=== PATIENT | female | born 1950 | race Caucasian/White ===

== ENCOUNTER 2017-12-13 05:17 | Observation (INO) | payer OTHER, BC ==
[2017-12-13] MEDS ORDERED: ceFAZolin 2 GM/DEXTROSE 100 ML IV ONE (05:41)
[2017-12-13] MEDS ORDERED: ACETAMINOPHEN 500 MG TAB PO ONE (05:41)
[2017-12-13] MEDS ORDERED: GABAPENTIN 300 MG CAP PO ONE (05:41)
[2017-12-13] MEDS ORDERED: LR 1,000 ML IV ONE (05:43)
[2017-12-13] MEDS ORDERED: SURGIFLO MATRIX KIT WITH THROMBIN 8 ML TP ONE (06:51)
[2017-12-13] MEDS ORDERED: THROMBIN (BOVINE) 20,000 UNIT VIAL TP ONE (06:51)
[2017-12-13] MEDS ORDERED: CHLORHEXIDINE GLUC HIBICLENS 118 ML BTL TP ONE (06:51)
[2017-12-13] MEDS ORDERED: BACITRACIN 50,000 UNITS/10 ML SYR IRR ONE (06:52)
--- NOTE | 2017-12-13 06:55 | PDANEPAE ---
ANE History of Present Illness ACDF ANE Past Medical History - Cardiovascular History Hx Hypertension: No Hx Arrhythmias: No Hx Chest Pain: No Hx Coronary Artery / Peripheral Vascular Disease: No Hx CHF / Valvular Disease: No Hx Palpitations: No Cardiovascular History Comment: OCCAS IRREG FLUTTER - Pulmonary History Hx COPD: No Hx Asthma/Reactive Airway Disease: No Hx Recent Upper Respiratory Infection: No Hx Oxygen in Use at Home: No Hx Sleep Apnea: No Sleep Apnea Screening Result - Last Documented: Negative Pulmonary History Comment: SEASONAL ALLERGIES - Neurologic History Hx Cerebrovascular Accident: No Hx Seizures: No Hx Dementia: No - Endocrine History Hx Diabetes: Yes Endocrine History Comment: HYPOTHYROID - Renal History Hx Renal Disorders: No - Liver History Hx Hepatic Disorders: No - Neurological & Psychiatric Hx Hx Neurological and Psychiatric Disorders: No Neurological / Psychiatric History Comment: CYMBALTA - DEPRESSION & BACK PAIN. LE neuropathy - Cancer History Hx Cancer: No - Congenital Disorder History Hx Congenital Disorders: No - GI History Hx Gastrointestinal Disorders: No - Other Health History Other Health History: 2 LT HIP DISLOCATIONS POST SURG 01/06/16 REVISION. HX - ANEMIA - TAKES B-12 - Chronic Pain History Chronic Pain: Yes (HIP PAIN & BACK PAIN) - Surgical History Prior Surgeries: R ALOK. L HIP REVISION X2. LT TOTAL HIP 01/2016. ORIF LT 2ND TOE WITH POST HARDWARE REMVL ANE Review of Systems Review of systems is: negative Review of Systems: - Exercise capacity METS (RN): 4 METS ANE Patient History - Allergies Allergies/Adverse Reactions: shellfish derived Allergy (Verified 01/22/16 22:08) - Home Medications Home medications: home medication list seen and reviewed Home Medications: Ascorbic Acid [Vitamin C 500 mg (*)] 500 mg PO DAILY 11/28/15 [Last Taken ] Herbals/Supplements -Info Only 1 each PO DAILY 11/28/15 [Last Taken 12/03/17] Diclofenac Sodium [Voltaren 75 MG (*)] 75 mg PO BID 01/22/16 [Last Taken ] Aspirin [Aspirin 81mg (*)] 81 mg PO DAILY 11/08/17 [Last Taken 12/03/17] Cholecalciferol Vit D3 [Vitamin D3 (*)] 1,000 units PO DAILY 11/08/17 [Last Taken 12/03/17] Cyanocobalamin [Vitamin B12 (*)] 1,000 mcg PO DAILY 11/08/17 [Last Taken ] DULoxetine [Cymbalta 30 MG (*)] 30 mg PO BID 11/08/17 [Last Taken 12/03/17] Levothyroxine [Synthroid 125 mcg (*)] 125 mcg PO DAILY06 11/08/17 [Last Taken ] Loratadine [Claritin 10 mg] 10 mg PO DAILY 11/08/17 [Last Taken 12/12/17] Metoprolol Succinate Xr [Toprol Xl 25 mg (*)] 25 mg PO DAILY 11/08/17 [Last Taken 12/12/17] Multivitamins [Multivitamin (*)] 2 each PO DAILY 11/08/17 [Last Taken 12/12/17] Meloxicam 3 mg PO DAILY 12/13/17 [Last Taken 12/03/17] - NPO status NPO Since - Liquids (Date): 12/13/17 NPO Since - Liquids (Time): 04:15 NPO Since - Solids (Date): 12/12/17 NPO Since - Solids (Time): 19:30 - Anes Hx Anes Hx: no prior problems - Smoking Hx Smoking Status: Former smoker - Family Anes Hx Family Anes Hx: none Family Hx Anesthesia Complications: NEG ANE Labs/Vital Signs - Vital Signs Vital Signs: reviewed preoperatively; see RN documention for details Blood Pressure: 143/84 Heart Rate: 64 Respiratory Rate: 16 O2 Sat (%): 98 Height: 166.37 cm Weight: 52.163 kg ANE Physical Exam - Airway Neck exam: FROM Mallampati Score: Class 1 Mouth exam: normal dental/mouth exam - Pulmonary Pulmonary: no respiratory distress - Cardiovascular Cardiovascular: regular rate and rhythym - ASA Status ASA Status: II ANE Anesthesia Plan Anesthesia Plan: general endotracheal anesthesia
--- NOTE | 2017-12-13 07:00 | PDHPUP ---
History & Physical Update H&P update statement: This history and physical update is based on an assessment of the patient which was completed after admission or registration (within 24 hours), but prior to the surgery/procedure. H&P update: H&P reviewed & patient examined, no change in patient's condition since H&P completed (Consents signed and site marked. All questions answered.)
[2017-12-13] MEDS ORDERED: MIDAZOLAM 2 MG/2 ML VIAL IVP ONE (07:02)
[2017-12-13] MEDS ORDERED: MIDAZOLAM 2 MG/2 ML VIAL ONE (07:04)
[2017-12-13] MEDS ORDERED: DEXAMETHASONE 4 MG/ML VIAL ONE (07:13)
[2017-12-13] MEDS ORDERED: LIDOCAINE 2% 100 MG/5 ML SYR ONE (07:13)
[2017-12-13] MEDS ORDERED: ONDANSETRON 4 MG/2 ML VIAL ONE (07:13)
[2017-12-13] MEDS ORDERED: ROCURONIUM 50 MG/5 ML VIAL ONE (07:13)
[2017-12-13] MEDS ORDERED: fentaNYL 100 MCG/2 ML INJ ONE ×2 (07:13→09:38)
[2017-12-13] MEDS ORDERED: REMIFENTANIL HCL 1 MG VIAL ONE (07:14)
[2017-12-13] MEDS ORDERED: PROPOFOL 200 MG/20 ML VIAL ONE (07:14)
[2017-12-13] MEDS ORDERED: PROPOFOL/EMULSION 500 MG/50 ML BOTTLE IV ONE (07:14)
--- NOTE | 2017-12-13 08:14 | POSTANESTH ---
Post Anesthetic Evaluation Cardiovascular Status: Similar to Pre-Op Cond Respiratory Status: Similar to Pre-op Cond. Level of Consciousness/Mental Status: Can Participate in Eval, Mildly Sleepy, Arousable Pain Control: Inadeq, Add Tx Required Nausea/Vomiting Control: Adequate, Prn Tx Ordered Complications Possibly Related to Anesthesia: None Noted
[2017-12-13] MEDS ORDERED: DEXAMETHASONE 4 MG/ML VIAL IVP PRN (08:15)
[2017-12-13] MEDS ORDERED: LABETALOL HCL 5 MG/ML 20 ML MDV IVP PRN (08:15)
[2017-12-13] MEDS ORDERED: HYDROCODONE/APAP 5/325 TAB PO PRN (08:15)
[2017-12-13] MEDS ORDERED: NALOXONE HCL 0.4 MG/ML INJ IVP PRN (08:15)
[2017-12-13] MEDS ORDERED: ALBUTEROL 3 ML DEYVIAL IH PRN (08:15)
[2017-12-13] MEDS ORDERED: oxyCODONE IR 5 MG TAB PO PRN (08:15)
[2017-12-13] MEDS ORDERED: ACETAMINOPHEN 500 MG TAB PO PRN (08:15)
[2017-12-13] MEDS ORDERED: ONDANSETRON 4 MG/2 ML VIAL IVP PRN ×2 (08:15→09:39)
[2017-12-13] MEDS ORDERED: MEPERIDINE 25 MG/0.5 ML AMP IVP PRN (08:15)
[2017-12-13] MEDS ORDERED: PROMETHAZINE HCL 25 MG/ML INJ IVP PRN (08:15)
[2017-12-13] MEDS ORDERED: HYDROmorphONE/DILAUDID 1 MG/ML INJ ONE (09:38)
[2017-12-13] MEDS ORDERED: ONDANSETRON DISINTEGRATING 4 MG TAB PO PRN (09:39)
[2017-12-13] MEDS ORDERED: MAGNESIUM HYDROXIDE 30 ML UDCUP PO PRN (09:39)
[2017-12-13] MEDS ORDERED: LACTULOSE 20 GM/30 ML UDCUP PO PRN (09:39)
[2017-12-13] MEDS ORDERED: diphenhydrAMINE 25 MG CAP PO PRN (09:39)
[2017-12-13] MEDS ORDERED: BISACODYL 10 MG SUPP PR PRN (09:39)
[2017-12-13] MEDS ORDERED: POLYETHYLENE GLYCOL 3350 17 GM PKT PO PRN (09:39)
[2017-12-13] MEDS: fentaNYL 100 MCG/2 ML INJ IVP PRN ×2 (09:40→10:00)
[2017-12-13] MEDS ORDERED: NS 1,000 ML IV SCH (09:45)
[2017-12-13] MEDS: HYDROmorphONE/DILAUDID 1 MG/ML INJ IVP PRN ×3 (09:50→10:46)
--- NOTE | 2017-12-13 09:52 | POSTOPPROG ---
Post Op Note Date of Operation: 12/13/17 Surgeon: Esau Monique Contract Administrative Assistant: ROWAN Velazquez Anesthesia: GET(General Endotracheal) Pre-op Diagnosis: cervical myelopathy Post-op Diagnosis: cervical myelopathy Indication: cervical myelopathy Procedure: ACDF C4-6 Inf/Abcess present in the surg proc area at time of surgery?: No EBL: Minimal PA Addendum - Addendum .: S: Posterior neck pain O: NAD A&OX3 MAEX4 5/5 = BUE and BLE. Incision C/D/I A/P 67F s/p ACDF C4-6 -Post op xrays pending -Advance diet as tolerated -Optimize pain management -Hard collar at all times other than shower -PDVT prophx: TEDs, SCDs, Lovenox okay POD3 -Please notify NS with any change in neuro/motor exam
[2017-12-13] MEDS ORDERED: DIAZEPAM 5 MG/ML 1 ML SYR ONE (10:12)
[2017-12-13] MEDS ORDERED: DIAZEPAM 5 MG/ML 1 ML SYR IVP ONE (10:15)
--- NOTE | 2017-12-13 10:43 | GOP ---
DATE OF OPERATION: 12/13/2017 SURGEON: Esau Monique MD EMPLOYMENT OFFICE CLERK: Jenelle Velazquez PA-C. ANESTHESIA: General. PREOPERATIVE DIAGNOSIS: 1. C4 through C6 cervical stenosis and spondylosis with myelopathy. 2. Treatment refractory to nonoperative intervention. POSTOPERATIVE DIAGNOSIS: 1. C4 through C6 cervical stenosis and spondylosis with myelopathy. 2. Treatment refractory to nonoperative intervention. PROCEDURE PERFORMED: 1. Anterior arthrodesis with approach to C4, C5, and C6. 2. C4-C5 diskectomy with bilateral foraminotomies, osteophytectomies, and interbody fusion using a 7 x 14 x 11 mm titanium-coated PEEK cage filled with morselized autograft and allograft. 3. C5-C6 diskectomy with bilateral foraminotomies, osteophytectomies, and interbody fusion using a 7 x 14 x 11 mm titanium-coated PEEK cage filled with morselized autograft and allograft. 4. Anterior cervical fusion C4, C5, and C6, with a 37.5 mm [employer] [place] translational plate. 5. Use of intraoperative fluoroscopy, less than 1 hour physician time. 6. Use of neuromonitoring. 7. Use of operating microscope. FINDINGS: per imaging SPECIMENS: None. ESTIMATED BLOOD LOSS: 5 mL. INDICATIONS: The patient is a 67-year-old woman who presented to our office with lower extremity symptoms and has bad stenosis in her lumbar spine. She also had complaints of myelopathy, and imaging demonstrates cervical stenosis with spondylosis, worse from the C4 through C6 levels. After discussion of the risks, benefits, and treatment alternatives after failing nonoperative intervention, we decided to proceed forth with surgery as described above. DESCRIPTION OF PROCEDURE: The patient was brought to the operating theater and underwent general endotracheal anesthesia without complications. She had Venodynes, ART hose, and the appropriate lines placed by Anesthesia. She was maintained supine on the operating room table with her head in slight extension. All bony prominences were inspected and padded. Using lateral fluoroscopy and a spinal needle, we picked our entry point at the C4 through C6 levels. This was marked as a transverse incision on the right side of her neck. This area was then prepped and draped in the usual sterile surgical fashion. A time-out was completed per protocol, and the patient received antibiotics within 1 hour of incision. The incision was taken down with the scalpel blade, and then using monopolar, the incision was taken down through the subcutaneous tissues to the level of the platysma. The platysma was over-mined in the cranial and caudal directions. A Weitlaner was placed to maintain our exposure. We opened the fibers of the platysma cranially and caudally. Using blunt and sharp dissection , we traveled in a plane medial to the carotid sheath and lateral to the esophagus and trachea to reach the prevertebral fascia. She had large anterior osteophytes on the vertebral bodies of C4, C5, and C6, which we took down the Leksell rongeur. We elevated the longus colli muscle from the anterior vertebral bodies of C4, C5, and C6. Deep retractors were placed to maintain our exposure, and we confirmed our level using lateral fluoroscopy. The microscope was brought into the field to assist with microscopic dissection and to maintain illumination and magnification. At this point, we placed Slaughters pins into the vertebral bodies of C4 and C5 and placed C4-C5 into mild distraction. We completed a C4-C5 diskectomy with bilateral foraminotomies and osteophytectomies. We prepared the cartilaginous endplates and measured the interbody space. We then placed a 7 x 14 x 11 mm titanium-coated PEEK cage filled with morselized autograft and allograft into the C4-C5 disk space. We removed the Slaughters pin from C4 and placed it into C6, and placed C5-C6 into mild distraction. We completed a C5-C6 diskectomy with bilateral foraminotomies and osteophytectomies. We prepared the cartilaginous endplates and measured the interbody space. We then placed a 7 x 14 x 11 mm titanium- coated PEEK cage filled with morselized autograft and allograft into the C5-6 disk space. We removed the Slaughters pins and drilled down the anterior osteophytes on C4, C5, and C6. We then secured a 37.5 mm [employer] [place] translational plate onto the vertebral bodies of C4, C5, and C6. The wound was irrigated copiously with bacitracin irrigation. We closed the wound in multiple layers using Vicryl sutures for the deep layers and Dermabond for the skin. The patient's wounds were dressed sterilely. She was awakened, extubated, and taken to the recovery room in stable condition. There were no complications and no noted changes on neuromonitoring throughout the procedure. COMPLICATIONS: None. /[id number]/MODL MTDD
[2017-12-13] MEDS: oxyCODONE IR 5 MG TAB PO PRN ×3 (11:54→23:37)
[2017-12-13] MEDS: ACETAMINOPHEN 500 MG TAB PO SCH ×2 (13:47→21:20)
[2017-12-13] MEDS: ceFAZolin 2 GM/DEXTROSE 100 ML IV SCH ×2 (15:02→23:37)
[2017-12-13] MEDS: CYCLOBENZAPRINE 10 MG TAB PO SCH ×2 (15:12→21:20)
[2017-12-13] MEDS ORDERED: MELATONIN 3 MG TAB PO SCH (21:00)
[2017-12-13] MEDS: SENNOSIDES/DOCUSATE SODIUM TAB PO SCH (21:20)
[2017-12-13] MEDS: FAMOTIDINE 20 MG TAB PO SCH (21:20)
[2017-12-13] MEDS: DULoxetine 30 MG CAP PO SCH (21:20)
[2017-12-14] MEDS: oxyCODONE IR 5 MG TAB PO PRN ×3 (05:08→13:52)
[2017-12-14 05:21] LABS: PLATELET COUNT 256 10^3/uL (150-400)
[2017-12-14] MEDS ORDERED: LEVOTHYROXINE 125 MCG TAB PO SCH (06:00)
[2017-12-14] MEDS: ACETAMINOPHEN 500 MG TAB PO SCH ×2 (06:10→13:52)
[2017-12-14 07:52] VITALS: BP 145/85
--- NOTE | 2017-12-14 07:59 | NEUSURGPN ---
Date of Surgery: 12/13/17 Post Op Day: 1 Assessment/Plan: Assessment: 67F s/p ACDF C4-6 POD#1 Plan: -Post op xrays show stable hardware placement without evidence of complication -Ok to discharge home today -Hard collar at all times other than shower -DVT prophx: TEDs, SCDs, Lovenox okay POD3 -Discusses patient with Dr Monique who saw the patient today as well. Subjective: Doing well, no complaints Objective: AxO x3 PERRLA 5/5 BUE, BLE Dressing CDI Collar in place Neuro Check Frequency: per routine Urinary Catheter in Place: No - Physician Discussed Patient with DrHoa: Eneida Patient Seen by : Eneida Neurosurgery Physical Exam - Vitals, I&O, Labs I and O 12/13/17 12/14/17 12/15/17 05:59 05:59 05:59 Intake Total 3160 Output Total 1875 1000 Balance 1285 -1000 Weight 52.16 kg Intake: Oral (ml) 2250 IV Intake (ml) 800 IV Infused (ml) 110 ceFAZolin 2 GM/DEXTROSE 110 100 ml @ 200 mls/hr IV Q8H [facility] Rx#:[id number] Output: Urine (ml) 1850 1000 Toilet 1850 1000 Estimated Blood Loss (ml) 25 Other: Intake Quantity Yes Sufficient Number of Voids Toilet 1 1 Vital Signs Temp Pulse Resp BP Pulse Ox 36.8 C 58 L 16 145/85 H 98 12/14/17 07:39 12/14/17 07:39 12/14/17 07:39 12/14/17 07:39 12/14/17 07:39 Laboratory Results 12/14/17 04:53 12/14/17 04:53 ICD10 Worksheet Patient Problems: Problems Problem Status Onset Anterior dislocation of left hip Acute Primary osteoarthritis of left hip Acute
[2017-12-14] MEDS ORDERED: CHOLECALCIFEROL VIT D3 1,000 UNITS TAB PO SCH (09:00)
[2017-12-14] MEDS ORDERED: MULTIVITAMINS 1 EACH TAB PO SCH (09:00)
[2017-12-14] MEDS ORDERED: METOPROLOL SUCCINATE XR 25 MG TAB PO SCH (09:00)
[2017-12-14] MEDS ORDERED: CETIRIZINE 10 MG TAB PO SCH (09:00)
[2017-12-14] MEDS ORDERED: CYANO/VITAMIN B12 1000 MCG TAB PO SCH (09:00)
[2017-12-14] MEDS ORDERED: ASCORBIC ACID 500 MG TAB PO SCH (09:00)
[2017-12-14] MEDS: FAMOTIDINE 20 MG TAB PO SCH (10:28)
[2017-12-14] MEDS: SENNOSIDES/DOCUSATE SODIUM TAB PO SCH (10:29)
[2017-12-14] MEDS: DULoxetine 30 MG CAP PO SCH (10:31)
[2017-12-14] MEDS: CYCLOBENZAPRINE 10 MG TAB PO SCH ×2 (10:32→14:34)
[2017-12-14] MEDS ORDERED: PNEUMOC 13-VAL CONJ-DIP CRM/PF 0.5 ML SYR IM ONE (12:13)
[2017-12-14] MEDS ORDERED: PNEUMOCOCCAL 0.5ML VACCINE VIAL IM ONE (15:00)
--- NOTE | 2017-12-14 18:24 | ASMTLACE ---
ROBERTE Length of stay for Answers: 2 days current admission Acuity / Level of Answers: No Care: Did the patient have an inpatient admission? Comorbidities - select Answers: Diabetes (uncontrolled or all that apply controlled) Opioid dependence / Chronic pain # of Emergency department Answers: 0 visits in the last 6 months Social determinants Answers: Mental health diagnosis (anxiety, depression, pers onality disorders, etc.) Score: 10 Date Signed: 12/14/2017 04:02 PM Electronically Signed By:EDGARDO Yoo
--- NOTE | 2017-12-14 19:43 | ASMTCMCOM ---
CM Note CM Note Notes: Pt medically stable for d/c with spouse and dghtr support. OT/PT/EGG SMELLER rec home. No CM d/c needs identified. Date Signed: 12/14/2017 04:04 PM Electronically Signed By:EDGARDO Yoo
[2017-12-16] MEDS ORDERED: ENOXAPARIN 40 MG/0.4 ML SYR SC SCH (09:00)
== END 2017-12-14 15:02 | disposition still patient (30) ==
LOC: F3N 05:17 → INTOOBSV 05:17 → F3N 11:20
PROVIDERS: ADMIT Neurological Surgery; ATTEND Neurological Surgery
PROC: 4A1004G Monitoring of Central Nervous Electrical Activity, Intraoperative, Open Approach (ICD-10-PCS; principal; 2017-12-13 07:15)
PROC: 0RB10ZZ Excision of Cervical Vertebral Joint, Open Approach (ICD-10-PCS; principal; 2017-12-13 07:15)
PROC: 0RG20A0 Fusion of 2 or more Cervical Vertebral Joints with Interbody Fusion Device, Anterior Approach, Anterior Column, Open Approach (ICD-10-PCS; principal; 2017-12-13 07:15)
DX: M50.021 Cervical disc disorder at C4-C5 level with myelopathy (principal); M50.022 Cervical disc disorder at C5-C6 level with myelopathy; M43.12 Spondylolisthesis, cervical region; Z23 Encounter for immunization; E03.9 Hypothyroidism, unspecified
CPT/HCPCS: 22551; 22552; 72040; 76001; 90686; 92610; 97116; 97161; 97166; 97535; C1713; G0008; G0009; G8978; G8979; G8987; G8988; G8989; G8996; G8997; J0690; J1100; J1170; J2001; J2250; J2405; J2704; J3010; J3360

== ENCOUNTER 2018-01-31 07:15 | Inpatient (IN) | payer OTHER, BC ==
[2018-01-31] MEDS ORDERED: ceFAZolin 2 GM/DEXTROSE 100 ML IV ONE (11:40)
[2018-01-31] MEDS ORDERED: GABAPENTIN 300 MG CAP PO ONE (11:40)
[2018-01-31] MEDS ORDERED: ACETAMINOPHEN 500 MG TAB PO ONE (11:40)
[2018-01-31] MEDS ORDERED: morphINE SR 15 MG TAB PO ONE (11:40)
[2018-01-31] MEDS ORDERED: morphINE PF 0.2 MG in SYRINGE INTRATHECAL 1 SYR IT ONE (11:40)
[2018-01-31] MEDS ORDERED: LR 1,000 ML IV ONE (11:41)
[2018-01-31] MEDS ORDERED: PROPOFOL/EMULSION 500 MG/50 ML BOTTLE IV ONE ×2 (11:44→15:11)
[2018-01-31] MEDS ORDERED: fentaNYL 100 MCG/2 ML INJ ONE (11:44)
[2018-01-31] MEDS ORDERED: REMIFENTANIL HCL 1 MG VIAL ONE ×2 (11:46→16:21)
--- NOTE | 2018-01-31 11:56 | PDANEPAE ---
ANE History of Present Illness TLIF ANE Past Medical History - Cardiovascular History Hx Hypertension: No Hx Arrhythmias: No Hx Chest Pain: No Hx Coronary Artery / Peripheral Vascular Disease: No Hx CHF / Valvular Disease: No Hx Palpitations: No Cardiovascular History Comment: OCCAS IRREG FLUTTER - Pulmonary History Hx COPD: No Hx Asthma/Reactive Airway Disease: No Hx Recent Upper Respiratory Infection: No Hx Oxygen in Use at Home: No Hx Sleep Apnea: No Sleep Apnea Screening Result - Last Documented: Negative Pulmonary History Comment: SEASONAL ALLERGIES - Neurologic History Hx Cerebrovascular Accident: No Hx Seizures: No Hx Dementia: No Neurologic History Comment: radiculopathic pain, right leg > left - Endocrine History Hx Diabetes: Yes Hypothyroid: No Hyperthyroid: No Obesity: no Endocrine History Comment: HYPOTHYROID - Renal History Hx Renal Disorders: No - Liver History Hx Hepatic Disorders: No - Neurological & Psychiatric Hx Hx Neurological and Psychiatric Disorders: No Neurological / Psychiatric History Comment: CYMBALTA - DEPRESSION & BACK PAIN. LE neuropathy - Cancer History Hx Cancer: No - Congenital Disorder History Hx Congenital Disorders: Yes Congenital History Comment: scoliosis - GI History Hx Gastrointestinal Disorders: No - Other Health History Other Health History: 2 LT HIP DISLOCATIONS POST SURG 01/06/16 REVISION. HX - ANEMIA - TAKES B-12. Wears glasses - Chronic Pain History Chronic Pain: Yes (Lumbar, right leg) - Surgical History Prior Surgeries: ACDF C4/5-5/6, 12/13/17. R ALOK. L HIP REVISION X2. LT TOTAL HIP 01/2016. ORIF LT 2ND TOE WITH POST HARDWARE REMVL ANE Review of Systems Review of systems is: negative Review of Systems: - Exercise capacity METS (RN): 4 METS ANE Patient History - Allergies Allergies/Adverse Reactions: shellfish derived Allergy (Verified 01/09/18 11:09) - Home Medications Home medications: home medication list seen and reviewed Home Medications: Ascorbic Acid [Vitamin C 500 mg (*)] 500 mg PO DAILY 11/28/15 [Last Taken ] Herbals/Supplements -Info Only 1 each PO DAILY 11/28/15 [Last Taken 12/03/17] Cholecalciferol Vit D3 [Vitamin D3 (*)] 1,000 units PO DAILY 11/08/17 [Last Taken 12/03/17] DULoxetine [Cymbalta 30 MG (*)] 30 mg PO BID 11/08/17 [Last Taken 12/03/17] Levothyroxine [Synthroid 125 mcg (*)] 125 mcg PO DAILY06 11/08/17 [Last Taken ] Loratadine [Claritin 10 mg] 10 mg PO DAILY 11/08/17 [Last Taken 12/12/17] Metoprolol Succinate Xr [Toprol Xl 25 mg (*)] 25 mg PO DAILY 11/08/17 [Last Taken 12/12/17] Cyanocobalamin [Vitamin B12 1000MCG/ML (*)] 1,000 mcg IM Q30D 01/02/18 [Last Taken Unknown] Cyclobenzaprine [Flexeril 10 MG (*)] 10 mg PO TID PRN 01/02/18 [Last Taken Unknown] oxyCODONE IR [Oxycodone Ir (*)] 5 - 10 mg PO Q4-6PRN PRN 01/02/18 [Last Taken Unknown] traMADol [Ultram 50 mg (*)] 50 mg PO TID PRN 01/09/18 [Last Taken Unknown] - Anes Hx Anes Hx: no prior problems - Smoking Hx Smoking Status: Former smoker - Family Anes Hx Family Hx Anesthesia Complications: none ANE Labs/Vital Signs - Vital Signs Height: 166.97 cm Weight: 52.163 kg ANE Physical Exam - Airway Neck exam: decreased ROM, spinal fusion Mallampati Score: Class 1 Mouth exam: normal dental/mouth exam - Pulmonary Pulmonary: no respiratory distress - Cardiovascular Cardiovascular: regular rate and rhythym - ASA Status ASA Status: II ANE Anesthesia Plan Anesthesia Plan: general endotracheal anesthesia Lines/Monitors: arterial line Specialized Airway: video laryngoscope
[2018-01-31] MEDS ORDERED: MIDAZOLAM 2 MG/2 ML VIAL IVP ONE (12:02)
[2018-01-31] MEDS ORDERED: MIDAZOLAM 2 MG/2 ML VIAL ONE (12:02)
[2018-01-31] MEDS ORDERED: diphenhydrAMINE 25 MG CAP PO PRN (12:29)
[2018-01-31] MEDS ORDERED: MAGNESIUM HYDROXIDE 30 ML UDCUP PO PRN (12:29)
[2018-01-31] MEDS ORDERED: THROMBIN (BOVINE) 20,000 UNIT VIAL TP ONE ×2 (12:29→13:11)
[2018-01-31] MEDS ORDERED: CHLORHEXIDINE GLUC HIBICLENS 118 ML BTL TP ONE (12:29)
[2018-01-31] MEDS ORDERED: ONDANSETRON 4 MG/2 ML VIAL IVP PRN ×2 (12:29→16:58)
[2018-01-31] MEDS ORDERED: POLYETHYLENE GLYCOL 3350 17 GM PKT PO PRN (12:29)
[2018-01-31] MEDS ORDERED: ONDANSETRON DISINTEGRATING 4 MG TAB PO PRN (12:29)
[2018-01-31] MEDS ORDERED: LACTULOSE 20 GM/30 ML UDCUP PO PRN (12:29)
[2018-01-31] MEDS ORDERED: BISACODYL 10 MG SUPP PR PRN (12:29)
[2018-01-31] MEDS ORDERED: CYANO/VITAMIN B12 1000 MCG/ML VIAL IM SCH (12:30)
[2018-01-31] MEDS ORDERED: BUPIVACAINE 0.25% 30 ML SDV ONE (12:30)
[2018-01-31] MEDS ORDERED: BACITRACIN 50,000 UNITS/10 ML SYR IRR ONE (12:30)
[2018-01-31] MEDS ORDERED: NS 1,000 ML IV SCH (12:30)
[2018-01-31] MEDS ORDERED: EPINEPHrine 1 MG/ML INJ ONE (12:30)
[2018-01-31] MEDS ORDERED: CITRATE DEXTROSE SOLN 500 ML BAG ONE (12:49)
[2018-01-31] MEDS ORDERED: DEXAMETHASONE 4 MG/ML VIAL ONE (12:55)
[2018-01-31] MEDS ORDERED: ONDANSETRON 4 MG/2 ML VIAL ONE (12:55)
[2018-01-31] MEDS ORDERED: LIDOCAINE 2% 5 ML SDV ONE (12:56)
[2018-01-31] MEDS ORDERED: ROCURONIUM 50 MG/5 ML VIAL ONE (12:56)
[2018-01-31] MEDS ORDERED: PHENYLEPHRINE HCL 100 MCG/ML SYR ONE ×2 (13:01→16:21)
--- NOTE | 2018-01-31 14:11 | POSTANESTH ---
Post Anesthetic Evaluation Cardiovascular Status: Other, See Comment Respiratory Status: Normal, Stable Level of Consciousness/Mental Status: Other, See Comment Pain Control: Adequate, Prn Tx Ordered Nausea/Vomiting Control: Adequate, Prn Tx Ordered Complications Possibly Related to Anesthesia: None Noted (Pt had HR fluctuating between 80s-120s in NSR along with confusion/emergence delirium which resolved spontaneously after about an hour in PACU. She required metoprolol 5mg IV as well as diazepam 2.5mg x2. EKG WNL. No neuro deficits noted.)
[2018-01-31] MEDS ORDERED: HYDROmorphONE/DILAUDID 2 MG/ML INJ ONE (15:14)
[2018-01-31] MEDS ORDERED: PHENYLEPHRINE 10 MG/ML SDV ONE (16:13)
--- NOTE | 2018-01-31 16:13 | PDMN ---
Medical Necessity Medical necessity: MCG S820 Lumbar Fusion and S830 Lumbar Laminectomy: 68 yo sp CPT 42131 S820 [place] [address] LL, L2-5 laminectomy , L2/3, 3/4 and 4/5 TLIF, PSF , L2-5 Posterior, MC IP only
[2018-01-31] MEDS ORDERED: HYDROCODONE/APAP 5/325 TAB PO PRN (16:58)
[2018-01-31] MEDS ORDERED: PHENYLEPHRINE HCL 100 MCG/ML SYR IVP PRN (16:58)
[2018-01-31] MEDS ORDERED: HYDROmorphONE/DILAUDID 2 MG/ML INJ IVP PRN (16:58)
[2018-01-31] MEDS ORDERED: METOCLOPRAMIDE 10 MG/2 ML VIAL IVP PRN (16:58)
[2018-01-31] MEDS ORDERED: ACETAMINOPHEN 500 MG TAB PO PRN (16:58)
[2018-01-31] MEDS ORDERED: LR 500 ML IV PRN (16:58)
[2018-01-31] MEDS ORDERED: LABETALOL HCL 5 MG/ML 20 ML MDV IVP PRN (16:58)
[2018-01-31] MEDS ORDERED: ALBUTEROL 3 ML DEYVIAL IH PRN (16:58)
[2018-01-31] MEDS ORDERED: PROMETHAZINE HCL 25 MG/ML INJ IVP PRN (16:58)
[2018-01-31] MEDS ORDERED: oxyCODONE IR 5 MG TAB PO PRN (16:58)
[2018-01-31] MEDS ORDERED: fentaNYL 100 MCG/2 ML INJ IVP PRN (16:58)
[2018-01-31] MEDS ORDERED: NALOXONE HCL 0.4 MG/ML INJ IVP PRN (16:58)
--- NOTE | 2018-01-31 17:39 | POSTOPPROG ---
Post Op Note Date of Operation: 01/31/18 Surgeon: Esau Monique Metal Sprayer Machined Parts: YONY Velazquez PAC Anesthesia: GET(General Endotracheal) Pre-op Diagnosis: Lumbar stenosis Post-op Diagnosis: Lumbar stenosis Indication: Lumbar stenosis Procedure: L2-5 laminectomy, TLIF, PSF Inf/Abcess present in the surg proc area at time of surgery?: No EBL: 250cc Drains: Mike ESPINO Addendum - Addendum .: S: Resting comfortably O: NAD A&Ox3 MAEx4 5/5 and equal in BUE and BLE A/P: 68y/o female s/p L2-L5 laminectomy, TLIF and PSF -Advance diet as tolerated -Optimize pain management -Post op xrays pending -JPx1 -DVT porphx: TEDs, SCDs, Lovenox okay POD1 -PT/OT -Please notify NS with any change in neuro/motor exam
[2018-01-31] MEDS ORDERED: METOPROLOL TARTRATE 5 MG/5 ML INJ ONE (18:06)
[2018-01-31] MEDS ORDERED: DIAZEPAM 5 MG/ML 1 ML SYR ONE (18:16)
[2018-01-31] MEDS: DIAZEPAM 5 MG/ML 1 ML SYR IVP PRN ×2 (18:18→18:44)
[2018-01-31] MEDS: ACETAMINOPHEN 500 MG TAB PO SCH ×2 (20:10→21:01)
[2018-01-31] MEDS ORDERED: NS BOLUS 500 ML (Wide open) IV ONE ×2 (20:30→23:30)
[2018-01-31] MEDS ORDERED: ALBUMIN 5% 250 ML IV ONE (20:30)
[2018-01-31] MEDS: METOPROLOL TARTRATE 5 MG/5 ML INJ IVP SCH ×2 (20:50→21:59)
[2018-01-31] MEDS: SENNOSIDES/DOCUSATE SODIUM TAB PO SCH (21:01)
[2018-01-31] MEDS: DULoxetine 30 MG CAP PO SCH (21:01)
[2018-01-31] MEDS: FAMOTIDINE 20 MG TAB PO SCH (21:01)
[2018-01-31] MEDS: ceFAZolin 2 GM/DEXTROSE 100 ML IV SCH (21:21)
[2018-01-31] MEDS: oxyCODONE IR 5 MG TAB PO PRN (21:52)
[2018-02-01] MEDS ORDERED: NS BOLUS 1000 ML (Wide open) IV ONE (02:30)
[2018-02-01] MEDS ORDERED: ALBUMIN 5% IV ONE (02:30)
[2018-02-01] MEDS: ceFAZolin 2 GM/DEXTROSE 100 ML IV SCH (03:55)
--- NOTE | 2018-02-01 05:34 | GOP ---
DATE OF OPERATION: 01/31/2018 SURGEON: Esau Monique MD ASSIST: KENZIE Gonzales ANESTHESIA: General. PREOPERATIVE DIAGNOSIS: 1. Lumbar spondylosis with stenosis L2 through L5. 2. Scoliosis. 3. Treatment refractory to nonoperative intervention. POSTOPERATIVE DIAGNOSIS: 1. Lumbar spondylosis with stenosis L2 through L5. 2. Scoliosis. 3. Treatment refractory to nonoperative intervention. PROCEDURE PERFORMED: 1. Posterior arthrodesis with approach to L2, L3, L4, and L5. 2. Posterolateral fusion with bilateral pedicle screw placement at L2, L3, L4, and L5 from the [employer] Solera 5.5/6.0 system. 3. Decompressive laminectomy with bilateral medial facetectomies, L2-L3, L3-L4 , and L4-L5. 4. Right-sided L2-L3, L3-L4, and L4-L5 aggressive facetectomies. 5. Right-sided L2-3 transforaminal lumbar interbody fusion with a 6 x 26 mm titanium coated PEEK cage with morselized autograft and allograft. 6. Right-sided L3-4 transforaminal lumbar interbody fusion with a 6 x 26 mm titanium coated PEEK cage filled with morselized autograft and allograft. 7. Right-sided L4-5 transforaminal lumbar interbody fusion with a 6 x 26 mm titanium coated PEEK cage filled with morselized autograft and allograft. 8. Posterolateral fusion on the left between L2 and L5 with morselized autograft and allograft. 9. Use of intraoperative 3D navigation. 10. Use of intraoperative fluoroscopy, less than 1 hour physician time. 11. Use of neuromonitoring. 12. Use of operating microscope. 13. Injection of preservative-free intrathecal narcotics. FINDINGS: per imaging SPECIMENS: None. ESTIMATED BLOOD LOSS: 250 mL, of which 130 was given back by Cell [employer]. INDICATIONS: The patient is a very pleasant woman who presented to our office with both lumbar and cervical spine issues. She had evidence of scoliosis with severe spinal stenosis L2 through L5. After undergoing surgery for her cervical spine, she presents now for her lumbar spine surgery. DESCRIPTION OF PROCEDURE: The patient was brought to the operating theater and underwent general endotracheal anesthesia without complications. She had Venodynes, ART hose, and the appropriate lines placed by Anesthesia. She was flipped prone onto the Mike table and all bony processes inspected and padded. The lower lumbar region was prepped and draped in usual sterile surgical fashion. A time-out was completed per protocol, and the patient antibiotics within 1 hour of incision. Using lateral fluoroscopy and a spinal needle, we then picked our entry at the L2 through L5 levels. This was then marked in the midline. The incision was infiltrated with Marcaine with epinephrine. The incision was taken down with the scalpel blade and then using monopolar taken down to the midline through the lumbodorsal fascia and subperiosteal dissection carried out to the transverse prostheses of L2, L3, L4, and L5. Deep retractors were placed to maintain our exposure and we confirmed our level using lateral fluoroscopy. Care was taken to preserve the bilateral L1-L2 facet joint.. We attached the 3D Stealth navigation clamp to the spinous process of L4 and completed a 3D Stealth navigation spin. Using 3D navigation we then placed the transport pilot holes for the bilateral pedicle screws in L2, L3, L4, and L5. All holes were manually palpated with no evidence of any cortical breaches. We then tapped and placed 5.5 x 45 mm screws bilaterally in L2, 6.5 x 50 mm screws bilaterally at L3, L4, and L5, from the [employer] Solera 5.5/6.0 system. A 3D Stealth Navigation spin demonstrated that the left L4 screw was somewhat superior into the disc space. This was then replaced and another 3D Stealth Navigation spin demonstrated good placement of the hardware. At this point, the microscope was brought into the field to assist with microscopic dissection and to maintain illumination and magnification. Using a combination of bur tip on the drill bit, Kerrison punches, and Leksell rongeur, we completed a decompressive laminectomy with bilateral medial facetectomies, L2 -L3, L3-L4, and L4-L5. We then resected the pars aggressively on the right- sided at L2-L3, L3-L4, [place] 4-L5. We first moved up to the L2-3 level. We distracted the interspace and completed a right-sided L2-3 diskectomy. We prepared the cartilaginous endplates and measured interbody space. We placed a 6 x 26 mm titanium coated PEEK cage filled with morselized autograft and allograft anteriorly and toward the midline. We packed additional morselized autograft into the disk space for the interbody fusion. We let down the distraction and moved down to the L3-4 level. We distracted the interspace and completed a right-sided L3-4 diskectomy. We prepared the cartilaginous endplates and measured the interbody space. We then placed a 6 x 26 mm titanium coated PEEK cage filled with morselized autograft and allograft anteriorly and toward the midline. We packed additional morselized allograft and autograft into the disk space for interbody fusion. We then let down distraction and moved down to the L4-5 level. We completed a right-sided L4-5 diskectomy and prepared the cartilaginous endplates. We measured the interbody space and placed a 6 x 26 mm titanium coated PEEK cage filled with morselized autograft and allograft anteriorly toward midline. We packed additional morselized autograft in the disk space for the interbody fusion. We let down the distraction and decorticated the bone on the left side between L2 and L5. We placed 2 lordotic rods in the head screws between L2 and L5 and secured them down with cap screws which were tightened per the palm gatherer's setting. We injected preservative-free intrathecal narcotics. At the time of the injection, the patient was noted have a spike in her EMG and sensory which only lasted 2 minutes. Nothing was lasting and motor and sensory normal after 2 minutes. At this point, the wound was irrigated copiously with bacitracin irrigation. We left morselized autograft and allograft on the left side between L2 and L5 for the posterolateral fusion. A drain was left in the subfascial space. The wound was then closed in multiple layers using Vicryl sutures in deep layers and Dermabond for the skin. The patient's wounds were dressed sterilely. She was then flipped supine onto the transfer cart, and was asleep at the time of this dictation. There were no complications and no noted changes on neuromonitoring throughout the procedure. The use of the PA was crucial to the protection and retraction of critical structures. COMPLICATIONS: None. /[id number]/MODL MTDD
[2018-02-01] MEDS: ACETAMINOPHEN 500 MG TAB PO SCH ×3 (05:43→20:06)
[2018-02-01] MEDS: LEVOTHYROXINE 125 MCG TAB PO SCH (05:49)
--- NOTE | 2018-02-01 07:42 | NEUSURGPN ---
Date of Surgery: 01/31/18 Post Op Day: 1 Assessment/Plan: A/P: 68y/o female s/p L2-L5 laminectomy, TLIF and PSF POD#1 - neuro stable - pain controlled - having right anterior thigh numbness, likely from positioning. - brace on when out of bed - continue SUMAN drain - postpo x-rays pending - recheck potassium this am - PT/OT - SCDs/TEDs, Lovenox - Transfer to the floor Subjective: Having localized back pain and right anterior thigh numbness Objective: Awake. Alert. PERRL. EOMI Facial expression symmetrical Muscle strength full at 5/5 Sensation intact Incision with dressing c/d/i Catheter Insertion Date: 01/31/18 - Physician Discussed Patient with .: Eneida Neurosurgery Physical Exam - Vitals, I&O, Labs I and O 01/31/18 02/01/18 02/02/18 05:59 05:59 05:59 Intake Total 4979 Output Total 1000 Balance 3979 Weight 54.6 kg Intake: Oral (ml) 1400 IV Intake (ml) 320 IV Infused (ml) 3259 Albumin 5% 125 ml @ As 125 Directed IV ONCE ONE Rx#: [id number] Albumin 5% 250 ml @ As 250 Directed IV ONCE ONE Rx#: [id number] Ns 1,000 ml @ 75 mls/hr 684 IV CONT JACOB Rx#: [id number] Ns 1,000 ml @ Wide Open 1000 IV ONCE ONE Rx#: [id number] Ns 500 ml @ Wide Open IV 500 ONCE ONE Rx#:[id number] Ns 500 ml @ Wide Open IV 500 ONCE ONE Rx#:[id number] ceFAZolin 2 GM/DEXTROSE 100 100 ml @ 200 mls/hr IV ONCALL ONE Rx#:[id number] ceFAZolin 2 GM/DEXTROSE 100 100 ml @ 200 mls/hr IV Q8H [facility] Rx#:[id number] Output: Urine (ml) 515 Catheter 515 Estimated Blood Loss (ml) 250 SUMAN Drain Output (ml) 235 Left Back Mike Baxter 235 Other: Intake Quantity Yes Sufficient Vital Signs Temp Pulse Resp BP Pulse Ox 37.1 C 92 10 L 92/71 L 98 02/01/18 04:00 02/01/18 06:07 02/01/18 04:00 02/01/18 06:07 02/01/18 04:00 Laboratory Results 02/01/18 02:30 01/31/18 18:19 ICD10 Worksheet Patient Problems: Problems Problem Status Onset Anterior dislocation of left hip Acute Primary osteoarthritis of left hip Acute
[2018-02-01] MEDS ORDERED: Herbals/Supplements -Info Only PO SCH (09:00)
[2018-02-01] MEDS ORDERED: NON-FORMULARY NEW DRUG (Loratadine [Claritin 10 Mg] 10 MG) PO SCH (09:00)
[2018-02-01] MEDS: SENNOSIDES/DOCUSATE SODIUM TAB PO SCH ×2 (09:40→20:06)
[2018-02-01] MEDS: ASCORBIC ACID 500 MG TAB PO SCH (09:40)
[2018-02-01] MEDS: ENOXAPARIN 40 MG/0.4 ML SYR SC SCH (09:40)
[2018-02-01] MEDS: METOPROLOL SUCCINATE XR 25 MG TAB PO SCH (09:40)
[2018-02-01] MEDS: DULoxetine 30 MG CAP PO SCH ×2 (09:41→20:06)
[2018-02-01] MEDS: FAMOTIDINE 20 MG TAB PO SCH ×2 (09:41→20:06)
[2018-02-01] MEDS: CHOLECALCIFEROL VIT D3 1,000 UNITS TAB PO SCH (09:41)
--- NOTE | 2018-02-01 11:56 | ASMTCMCOM ---
CM Note CM Note Notes: Patient is POD #1 L2-5 laminectomy and TLIF and PSF. She is normally independent although she has been debilitated by pain for the last few months. She lives with her in [place] and is interested in SNF to help her with ADLs and PT. I sent a referral to [facility] at her request. Case Management will follow. Date Signed: 02/01/2018 11:56 AM Electronically Signed By:Josseline Buckner RN
[2018-02-01] MEDS: CYCLOBENZAPRINE 10 MG TAB PO PRN (20:06)
[2018-02-01] MEDS: oxyCODONE IR 5 MG TAB PO PRN (20:06)
[2018-02-01] MEDS: METHOCARBAMOL 750 MG TAB PO PRN (21:24)
[2018-02-02] MEDS: oxyCODONE IR 5 MG TAB PO PRN ×4 (00:22→20:38)
[2018-02-02] MEDS: LEVOTHYROXINE 125 MCG TAB PO SCH (05:55)
[2018-02-02] MEDS: ACETAMINOPHEN 500 MG TAB PO SCH ×3 (05:55→20:40)
--- NOTE | 2018-02-02 08:28 | NEUSURGPN ---
Assessment/Plan: A/P: 68y/o female s/p L2-L5 laminectomy, TLIF and PSF POD#2 - neuro stable - pain controlled - having right anterior thigh numbness, likely from positioning. Continue to monitor. - brace on when out of bed - continue SUMAN drain - postop xrays show stable hardware - K is improved - PT/OT - SCDs/TEDs, Lovenox - Transfer to the floor when bed available. med surg status - D/w Dr Monique Subjective: Pt resting in bed, c/o posterior back pain. Objective: AAOx3 NAD VSS MAEx4 Motor 5/5 BLE Incision dressed JPx1 +LT Urinary Catheter in Place: No Catheter Insertion Date: 01/31/18 - Physician Discussed Patient with : Eneida Neurosurgery Physical Exam - Vitals, I&O, Labs I and O 02/01/18 02/02/18 02/03/18 05:59 05:59 05:59 Intake Total 4979 4600 Output Total 1000 330 Balance 3979 4270 Weight 54.6 kg Intake: Oral (ml) 1400 3900 IV Intake (ml) 320 700 IV Infused (ml) 3259 Albumin 5% 125 ml @ As 125 Directed IV ONCE ONE Rx#: [id number] Albumin 5% 250 ml @ As 250 Directed IV ONCE ONE Rx#: [id number] Ns 1,000 ml @ 75 mls/hr 684 IV CONT JACOB Rx#: [id number] Ns 1,000 ml @ Wide Open 1000 IV ONCE ONE Rx#: [id number] Ns 500 ml @ Wide Open IV 500 ONCE ONE Rx#:[id number] Ns 500 ml @ Wide Open IV 500 ONCE ONE Rx#:[id number] ceFAZolin 2 GM/DEXTROSE 100 100 ml @ 200 mls/hr IV ONCALL ONE Rx#:[id number] ceFAZolin 2 GM/DEXTROSE 100 100 ml @ 200 mls/hr IV Q8H [facility] Rx#:[id number] Output: Urine (ml) 515 Catheter 515 Estimated Blood Loss (ml) 250 SUMAN Drain Output (ml) 235 330 Left Back Mike Baxter 235 330 Other: Intake Quantity Yes Yes Sufficient Number of Voids Toilet 1 Vital Signs Temp Pulse Resp BP Pulse Ox 37.1 C 76 16 126/62 H 96 02/02/18 08:07 02/02/18 08:07 02/02/18 08:07 02/02/18 08:07 02/02/18 08:07 Laboratory Results 02/01/18 02:30 02/01/18 10:00 ICD10 Worksheet Patient Problems: Problems Problem Status Onset Anterior dislocation of left hip Acute Primary osteoarthritis of left hip Acute
[2018-02-02] MEDS: CHOLECALCIFEROL VIT D3 1,000 UNITS TAB PO SCH (08:52)
[2018-02-02] MEDS: guaiFENesin 600 MG TAB.ER PO SCH ×2 (08:52→20:38)
[2018-02-02] MEDS: ASCORBIC ACID 500 MG TAB PO SCH (08:52)
[2018-02-02] MEDS: FAMOTIDINE 20 MG TAB PO SCH ×2 (08:52→20:38)
[2018-02-02] MEDS: METOPROLOL SUCCINATE XR 25 MG TAB PO SCH (08:52)
[2018-02-02] MEDS: DULoxetine 30 MG CAP PO SCH ×2 (08:53→20:38)
[2018-02-02] MEDS: ENOXAPARIN 40 MG/0.4 ML SYR SC SCH (08:53)
[2018-02-02] MEDS: CETIRIZINE 10 MG TAB PO SCH (08:53)
[2018-02-02] MEDS: SENNOSIDES/DOCUSATE SODIUM TAB PO SCH ×2 (08:53→20:38)
[2018-02-02] MEDS: CYCLOBENZAPRINE 10 MG TAB PO PRN ×2 (14:14→20:38)
[2018-02-02] MEDS: METHOCARBAMOL 750 MG TAB PO PRN (15:59)
[2018-02-03] MEDS: METHOCARBAMOL 750 MG TAB PO PRN (03:45)
[2018-02-03] MEDS: oxyCODONE IR 5 MG TAB PO PRN (03:46)
[2018-02-03] MEDS: ACETAMINOPHEN 500 MG TAB PO SCH ×3 (05:00→23:11)
[2018-02-03] MEDS: LEVOTHYROXINE 125 MCG TAB PO SCH (05:01)
[2018-02-03] MEDS ORDERED: METHOCARBAMOL 1,000 MG in NS 50 ML IVP ONE (07:32)
--- NOTE | 2018-02-03 08:26 | NEUSURGPN ---
Assessment/Plan: A/P: 68y/o female s/p L2-L5 laminectomy, TLIF and PSF POD#3 - Pt had fall overnight, now with R periprosthetic hip fx of lesser trochanter. D/w Dr Miller of ortho and ordering CT R hip for further evaluation of the fracture. Spine xrays show stable hardware -NPO, lovenox held in anticipation of possible ortho sx - pain control - add IV robaxin, gabapentin - brace on when out of bed - SUMAN drain 60 cc out last 24 hours, remove today - PT/OT as able - SCDs/TEDs, Lovenox - Med surg status - Dispo: dc on hold given new hip fx - D/w Dr Monique. Dr Monique will be in to see pt later today as well. Subjective: Pt resting in bed, c/o cramping in lower back, right hip. Objective: AAOx3 NAD but appears uncomfortable in bed VSS MAEx4 Motor 5/5 LLE, df/pf RLE 5/5 - deferred further motor testing of RLE given hip fx JPx1 Urinary Catheter in Place: No Catheter Insertion Date: 01/31/18 - Physician Discussed Patient with : Eneida Neurosurgery Physical Exam - Vitals, I&O, Labs I and O 02/02/18 02/03/18 02/04/18 05:59 05:59 05:59 Intake Total 4600 1200 Output Total 330 60 300 Balance 4270 1140 -300 Intake: Oral (ml) 3900 1200 IV Intake (ml) 700 Output: Urine (ml) 300 Catheter 300 SUMAN Drain Output (ml) 330 60 Left Back Mike Baxter 330 60 Other: Intake Quantity Yes Yes Sufficient Output Comment Catheter external female cath Number of Voids Bedpan 1 Incontinence 1 Toilet 1 5 Vital Signs Temp Pulse Resp BP Pulse Ox 36.9 C 108 H 20 168/94 H 97 02/03/18 07:57 02/03/18 07:57 02/03/18 07:57 02/03/18 07:57 02/03/18 07:57 Laboratory Results 02/01/18 02:30 02/01/18 10:00 ICD10 Worksheet Patient Problems: Problems Problem Status Onset Anterior dislocation of left hip Acute Primary osteoarthritis of left hip Acute
[2018-02-03] MEDS: CHOLECALCIFEROL VIT D3 1,000 UNITS TAB PO SCH (10:20)
[2018-02-03] MEDS: CETIRIZINE 10 MG TAB PO SCH (10:20)
[2018-02-03] MEDS: ASCORBIC ACID 500 MG TAB PO SCH (10:20)
[2018-02-03] MEDS: FAMOTIDINE 20 MG TAB PO SCH ×2 (10:21→23:11)
[2018-02-03] MEDS: guaiFENesin 600 MG TAB.ER PO SCH ×2 (10:21→23:10)
[2018-02-03] MEDS: SENNOSIDES/DOCUSATE SODIUM TAB PO SCH ×2 (10:21→23:11)
[2018-02-03] MEDS: GABAPENTIN 300 MG CAP PO SCH (10:24)
[2018-02-03] MEDS: CYCLOBENZAPRINE 10 MG TAB PO PRN (10:24)
[2018-02-03] MEDS: DULoxetine 30 MG CAP PO SCH ×2 (10:24→23:11)
[2018-02-03] MEDS: METOPROLOL SUCCINATE XR 25 MG TAB PO SCH (11:13)
--- NOTE | 2018-02-03 12:49 | ASMTCMCOM ---
CM Note CM Note Notes: Patient was scheduled to be discharged to [facility] today. However, she attempted to go to the bathroom by herself last night and fell. Patient had been instructed to use her call light and get assistance. Patient has broken her hip. Notified Ghazal with [facility] the patient will not be discharging today. Sent [facility] updates through Instagram. Discharge plan currently remains [facility] for rehab when medically clear for discharge. CM will follow. Date Signed: 02/03/2018 12:48 PM Electronically Signed By:Brittni Blanco LCSW
[2018-02-03] MEDS ORDERED: LR 1,000 ML IV ONE (14:54)
[2018-02-03] MEDS ORDERED: POLYMYXIN B SULFATE 500,000 UNIT/10 ML SYR IRR ONE (14:56)
[2018-02-03] MEDS ORDERED: BUPIVACAINE 0.5% 30 ML SDV ONE (14:56)
--- NOTE | 2018-02-03 15:36 | PDANEPAE ---
ANE History of Present Illness R femur ORIF ANE Past Medical History - Cardiovascular History Hx Hypertension: No Hx Arrhythmias: No Hx Chest Pain: No Hx Coronary Artery / Peripheral Vascular Disease: No Hx CHF / Valvular Disease: No Hx Palpitations: No Cardiovascular History Comment: OCCAS IRREG FLUTTER - Pulmonary History Hx COPD: No Hx Asthma/Reactive Airway Disease: No Hx Recent Upper Respiratory Infection: No Hx Oxygen in Use at Home: No Hx Sleep Apnea: No Sleep Apnea Screening Result - Last Documented: Negative Pulmonary History Comment: SEASONAL ALLERGIES - Neurologic History Hx Cerebrovascular Accident: No Hx Seizures: No Hx Dementia: No Neurologic History Comment: radiculopathic pain, right leg > left - Endocrine History Hx Diabetes: Yes Hypothyroid: No Hyperthyroid: No Obesity: no Endocrine History Comment: HYPOTHYROID - Renal History Hx Renal Disorders: No - Liver History Hx Hepatic Disorders: No - Neurological & Psychiatric Hx Hx Neurological and Psychiatric Disorders: No Neurological / Psychiatric History Comment: CYMBALTA - DEPRESSION & BACK PAIN. LE neuropathy - Cancer History Hx Cancer: No - Congenital Disorder History Hx Congenital Disorders: Yes Congenital History Comment: scoliosis - GI History Hx Gastrointestinal Disorders: No - Other Health History Other Health History: 2 LT HIP DISLOCATIONS POST SURG 01/06/16 REVISION. HX - ANEMIA - TAKES B-12. Wears glasses - Chronic Pain History Chronic Pain: Yes (Lumbar, right leg) - Surgical History Prior Surgeries: ACDF C4/5-5/6, 12/13/17. R ALOK. L HIP REVISION X2. LT TOTAL HIP 01/2016. ORIF LT 2ND TOE WITH POST HARDWARE REMVL ANE Review of Systems Review of Systems: - Exercise capacity METS (RN): 4 METS ANE Patient History - Allergies Allergies/Adverse Reactions: shellfish derived Allergy (Verified 01/09/18 11:09) - Home Medications Home medications: home medication list seen and reviewed Home Medications: Ascorbic Acid [Vitamin C 500 mg (*)] 500 mg PO DAILY 11/28/15 [Last Taken ] Herbals/Supplements -Info Only 1 each PO DAILY 11/28/15 [Last Taken 12/03/17] Cholecalciferol Vit D3 [Vitamin D3 (*)] 1,000 units PO DAILY 11/08/17 [Last Taken 12/03/17] DULoxetine [Cymbalta 30 MG (*)] 30 mg PO BID 11/08/17 [Last Taken 12/03/17] Levothyroxine [Synthroid 125 mcg (*)] 125 mcg PO DAILY06 11/08/17 [Last Taken ] Loratadine [Claritin 10 mg] 10 mg PO DAILY 11/08/17 [Last Taken 12/12/17] Metoprolol Succinate Xr [Toprol Xl 25 mg (*)] 25 mg PO DAILY 11/08/17 [Last Taken 12/12/17] Cyanocobalamin [Vitamin B12 1000MCG/ML (*)] 1,000 mcg IM Q30D 01/02/18 [Last Taken Unknown] Cyclobenzaprine [Flexeril 10 MG (*)] 10 mg PO TID PRN 01/02/18 [Last Taken Unknown] oxyCODONE IR [Oxycodone Ir (*)] 5 - 10 mg PO Q4-6PRN PRN 01/02/18 [Last Taken Unknown] traMADol [Ultram 50 mg (*)] 50 mg PO TID PRN 01/09/18 [Last Taken Unknown] - NPO status NPO Status: no food or drink >8 hours NPO Since - Liquids (Date): 02/03/18 NPO Since - Liquids (Time): 01:30 NPO Since - Solids (Date): 02/02/18 NPO Since - Solids (Time): 21:00 - Anes Hx Anes Hx: no prior problems - Smoking Hx Smoking Status: Former smoker - Alcohol Use Alcohol Use: None - Family Anes Hx Family Anes Hx: none Family Hx Anesthesia Complications: none ANE Labs/Vital Signs - Labs Result Diagrams: 02/01/18 02:30 02/01/18 10:00 - Labs - CBC WBC: post op anemia - Vital Signs Blood Pressure: 181/111 Heart Rate: 95 Respiratory Rate: 20 O2 Sat (%): 99 Height: 165.1 cm Weight: 54.6 kg ANE Physical Exam - Airway Neck exam: FROM Mallampati Score: Class 2 Mouth exam: normal dental/mouth exam - Pulmonary Pulmonary: no respiratory distress - Cardiovascular Cardiovascular: regular rate and rhythym - ASA Status ASA Status: II ANE Anesthesia Plan Anesthesia Plan: general endotracheal anesthesia
[2018-02-03] MEDS ORDERED: ceFAZolin 2 GM/DEXTROSE 100 ML IV ONE (15:46)
[2018-02-03] MEDS ORDERED: ROPIVACAINE 0.2% 80 MG, EPINEPHrine 0.2 MG, KETOROLAC TROMETHAMINE 30 MG, morphINE 10 M... IU ONE (15:46)
[2018-02-03] MEDS ORDERED: TRANEXAMIC ACID 3,000 MG in NS (SYRINGE) 50 ML IRR ONE (15:46)
[2018-02-03] MEDS ORDERED: fentaNYL 100 MCG/2 ML INJ ONE ×2 (15:56→19:03)
[2018-02-03] MEDS ORDERED: PROPOFOL/EMULSION 500 MG/50 ML BOTTLE IV ONE (15:57)
[2018-02-03] MEDS ORDERED: ROCURONIUM 50 MG/5 ML VIAL ONE (16:10)
[2018-02-03] MEDS ORDERED: ONDANSETRON 4 MG/2 ML VIAL ONE (16:10)
[2018-02-03] MEDS ORDERED: LIDOCAINE 2% 100 MG/5 ML SYR ONE (16:10)
[2018-02-03] MEDS ORDERED: DEXAMETHASONE 4 MG/ML VIAL ONE (16:10)
[2018-02-03] MEDS ORDERED: PHENYLEPHRINE HCL 100 MCG/ML SYR ONE (16:10)
[2018-02-03] MEDS ORDERED: LIDOCAINE HCL 160 MG/4 ML LTA KIT TP ONE (16:11)
[2018-02-03] MEDS ORDERED: LIDOCAINE 2% JELLY 5 ML TUBE ONE (16:17)
[2018-02-03] MEDS ORDERED: ALBUTEROL 3 ML DEYVIAL IH PRN (18:05)
[2018-02-03] MEDS ORDERED: DEXAMETHASONE 4 MG/ML VIAL IVP PRN (18:05)
[2018-02-03] MEDS ORDERED: LR 500 ML IV PRN (18:05)
[2018-02-03] MEDS ORDERED: PROMETHAZINE HCL 25 MG/ML INJ IVP PRN (18:05)
[2018-02-03] MEDS ORDERED: NALOXONE HCL 0.4 MG/ML INJ IVP PRN (18:05)
[2018-02-03] MEDS ORDERED: ONDANSETRON 4 MG/2 ML VIAL IVP PRN (18:05)
[2018-02-03] MEDS ORDERED: fentaNYL 100 MCG/2 ML INJ IVP PRN (18:05)
[2018-02-03] MEDS ORDERED: ACETAMINOPHEN 500 MG TAB PO PRN (18:05)
[2018-02-03] MEDS ORDERED: oxyCODONE IR 5 MG TAB PO PRN (18:05)
[2018-02-03] MEDS ORDERED: MEPERIDINE 25 MG/0.5 ML AMP IVP PRN (18:05)
[2018-02-03] MEDS ORDERED: LABETALOL HCL 5 MG/ML 20 ML MDV IVP PRN (18:05)
[2018-02-03] MEDS ORDERED: PHENYLEPHRINE HCL 100 MCG/ML SYR IVP PRN (18:05)
[2018-02-03] MEDS ORDERED: METOCLOPRAMIDE 10 MG/2 ML VIAL IVP PRN (18:05)
[2018-02-03] MEDS ORDERED: ACETAMINOPHEN 325 MG TAB PO PRN (18:27)
[2018-02-03] MEDS ORDERED: OXYCODONE/APAP 5/325 TAB PO PRN (18:27)
--- NOTE | 2018-02-03 18:27 | POSTOPPROG ---
Post Op Note Date of Operation: 02/03/18 Surgeon: Jodi Miller Patent Drafter: coltrain Anesthesia: GET(General Endotracheal) Pre-op Diagnosis: r femur forest-prosthetic fracture Procedure: orif r prox femur with fluoro Inf/Abcess present in the surg proc area at time of surgery?: No Depth: Deep Incisional (Fascial) EBL: 100-500
--- NOTE | 2018-02-03 19:31 | GCON ---
DATE OF CONSULTATION: 02/03/2018 CURRENT COMPLAINT: Right hip pain. HISTORY OF PRESENT ILLNESS: This is a 68-year-old female who previously undergone a lumbar fusion 2 days ago. She fell in her room earlier today. X-rays revealed a periprosthetic fracture. A subsequ ent CT exam revealed the full extent of the fracture that extended to the midportion of her total hip stem. I was asked to see the patient for further evaluation. PHYSICAL EXAM: Patient is neurologically intact in dorsal and plantar portions of the foot. She has pain to log roll through the hip. There are no open wounds noted on the lateral portion of her thig h or hip. CT exam reveals fractures extending through the lesser trochanter, through the greater trochanter and extending along the shaft of the femur to the mid portion of her femoral stem. ASSESSMENT AND PLAN: Patient is status post right proximal femur periprosthetic fracture. Options w ere discussed with the patient and include conservative versus operative treatment. She would prefer operative treatment. She will therefore be brought to the operating room as soon as time is availab le to undergo an open reduction, internal fixation of her proximal periprosthetic femur fracture. /[id number]/MODL
[2018-02-03] MEDS: traMADol 50 MG TAB PO SCH (23:59)
[2018-02-04] MEDS: ACETAMINOPHEN 500 MG TAB PO SCH ×3 (05:23→23:33)
[2018-02-04] MEDS: LEVOTHYROXINE 125 MCG TAB PO SCH (05:23)
[2018-02-04] MEDS: traMADol 50 MG TAB PO SCH ×4 (05:24→23:32)
--- NOTE | 2018-02-04 06:18 | GOP ---
DATE OF OPERATION: 02/03/2018 SURGEON: Jodi Miller MD CUT OFF SAW OPERATOR PIPE BLANKS: ALYCE Reeder, LSA, whose presence was medically necessary. ANESTHESIA: Via endotracheal intubation. PREOPERATIVE DIAGNOSIS: Right periprosthetic proximal femur fracture. POSTOPERATIVE DIAGNOSIS: Right periprosthetic proximal femur fracture. PROCEDURE PERFORMED: Open reduction, internal fixation of right proximal femur periprosthetic fractu re with fluoroscopy. FINDINGS: INDICATIONS: This is a 68-year-old female who had previously undergone a lumbar fusion 2 days ago, h ad been doing well until very early this morning when she fell in her room. She was diagnosed with a hip fracture. Subsequent CT exam revealed the full extent of the fracture extending from the greate r trochanter to the midportion of her prosthesis. It was decided to do surgery in order to gain bett er fixation and stable construct for her to be able to put some weight upon the right lower extremity . She was, therefore, brought to the operating room as soon as time was available. DESCRIPTION OF PROCEDURE: The patient was brought to the operating room after the right side had bee n identified as the correct side by the patient, nurse, and physician. Once in the operating room, s he was placed under general anesthesia using endotracheal intubation. Once asleep, she was placed on the operating room table on a left lateral decubitus position with a well-padded axillary roll and a beanbag used to hold her in position, exposing her right hip and flank. Once in position, the right hip and flank were sterilely prepped using GSI solution. Once prepped and draped, fluoroscopy was u sed to ensure the adequate length of incision. The prior scar that she had on the lateral portion of her hip was incorporated and extended by approximately 12 cm distally in order to gain access to the full femur. Sharp dissection was carried down through the skin and subcutaneous layers with bleedin g controlled using electrocautery. The fascia overlying the TFL was incised in line with its fibers with bleeding controlled using electrocautery, and then the fascia overlying the vastus lateralis was incised with blunt dissection carried through the muscular layers and bleeding controlled using elec trocautery in order to gain access to the lateral portion of the femur. Multiple plates were sized on the femur using fluoroscopy, noted that a 12-hole, 4.5 mm locking plate from [employer] seemed to fit best. An aluminum trial was placed against the bone in order to gain a m old of what the plate would need to look like, and [place] Benders were used in order to bend the plat e into a proper position so that it would lie nicely against the bone. Once put into place, it was c abled into placed, and once in the midportion of the plate once in position, the 2 distal screws were filled with a bicortical and a locking screw. Two more cables were placed both proximally and dista lly along the course of the plate. Fluoroscopy was used to ensure proper positioning. A third screw was able to be added to the distal extent of the plate construct, and a locking screw was able to be placed in the proximal-most hole into the greater tuberosity which had been known to have a fracture . Once finished, fluoroscopy was used to ensure proper positioning of the plate and screws and good red uction of the fracture. Once ensured, the wound was thoroughly irrigated with antibiotic solution an d then thoroughly irrigated with tranexamic acid in order to help control bleeding. A joint cocktail was injected around the shaft of the femur and into the superior portion of the greater trochanter. The wound was then closed in layers using #2 PDO suture in a running whipstitch through the fascia o verlying the vastus lateralis and then an another #2 PDO suture in a running whipstitch for the fasci a of the TFL and then 0 Vicryl and 2-0 Vicryl suture used for the subcutaneous layers, and vilma us ed for the skin. The wound was then dressed with Xeroform, 4 x 4, and Tegaderm. She was completely undraped in the operating room, placed back into a supine position, transferred onto a bed, and sent to the recovery room in good condition. /[id number]/MODL
--- NOTE | 2018-02-04 09:37 | SOAPPROG ---
SOAP Progress Note Assessment/Plan: Assessment: 68 yo F POD #4 L2-5 TLIF and POD #1 ORIF right hip fx Plan: neuro: stable and doing well overall scd/kourtney/lovenox for dvt prophylaxis lso brace when out of bed activity per orthopedics dc to [facility] when ready please call with neuro changes 02/04/18 09:34 Subjective: + back pain, some pain in leg in the mornings Objective: Vital Signs Temp Pulse Resp BP Pulse Ox 36.7 C 108 H 16 118/74 96 02/04/18 08:00 02/04/18 08:00 02/04/18 08:00 02/04/18 08:00 02/04/18 08:00 Laboratory Results 02/04/18 04:48 02/01/18 10:00 02/03/18 02/04/18 02/05/18 05:59 05:59 04:59 Intake Total 1200 1300 400 Output Total 60 1550 1 Balance 1140 -250 399 AAOX4, +FC PERRL, EOMI, no facial droop 5/5 + light touch C/D/I ICD10 Worksheet Patient Problems: Problems Problem Status Onset Anterior dislocation of left hip Acute Primary osteoarthritis of left hip Acute
[2018-02-04] MEDS: GABAPENTIN 300 MG CAP PO SCH (10:14)
[2018-02-04] MEDS: DULoxetine 30 MG CAP PO SCH ×2 (10:14→20:29)
[2018-02-04] MEDS: SENNOSIDES/DOCUSATE SODIUM TAB PO SCH ×2 (10:14→20:29)
[2018-02-04] MEDS: ASCORBIC ACID 500 MG TAB PO SCH (10:16)
[2018-02-04] MEDS: guaiFENesin 600 MG TAB.ER PO SCH ×2 (10:16→20:29)
[2018-02-04] MEDS: CETIRIZINE 10 MG TAB PO SCH (10:16)
[2018-02-04] MEDS: oxyCODONE IR 5 MG TAB PO PRN ×2 (10:17→14:49)
[2018-02-04] MEDS: METOPROLOL SUCCINATE XR 25 MG TAB PO SCH (10:17)
[2018-02-04] MEDS: CHOLECALCIFEROL VIT D3 1,000 UNITS TAB PO SCH (10:17)
[2018-02-04] MEDS: FAMOTIDINE 20 MG TAB PO SCH ×2 (10:17→20:30)
--- NOTE | 2018-02-04 12:12 | SOAPPROG ---
SOAP Progress Note Assessment/Plan: Assessment: Plan: Subjective: states she has pain but is OOB dressing C&D with foot and lateral thigh NVI cont PT and pain meds await transfer to rehab Objective: Vital Signs Temp Pulse Resp BP Pulse Ox 36.7 C 108 H 16 118/74 96 02/04/18 08:00 02/04/18 10:17 02/04/18 08:00 02/04/18 10:17 02/04/18 08:00 Laboratory Results 02/04/18 04:48 02/01/18 10:00 02/03/18 02/04/18 02/05/18 05:59 05:59 04:59 Intake Total 1200 1300 400 Output Total 60 1550 1 Balance 1140 -250 399 ICD10 Worksheet Patient Problems: Problems Problem Status Onset Anterior dislocation of left hip Acute Primary osteoarthritis of left hip Acute
[2018-02-04] MEDS: METHOCARBAMOL 750 MG TAB PO PRN (18:03)
[2018-02-05] MEDS: oxyCODONE IR 5 MG TAB PO PRN ×4 (02:52→16:00)
[2018-02-05] MEDS: ACETAMINOPHEN 500 MG TAB PO SCH ×2 (05:09→13:35)
[2018-02-05] MEDS: METHOCARBAMOL 750 MG TAB PO PRN ×2 (05:11→12:18)
[2018-02-05] MEDS: traMADol 50 MG TAB PO SCH ×2 (05:11→12:17)
[2018-02-05] MEDS: LEVOTHYROXINE 125 MCG TAB PO SCH (05:11)
--- NOTE | 2018-02-05 06:45 | SOAPPROG ---
SOAP Progress Note Assessment/Plan: Assessment: 68 yo F POD #5 L2-5 TLIF and POD #2 ORIF right hip fx Plan: neuro: stable and doing well overall scd/kourtney/lovenox for dvt prophylaxis lso brace when out of bed activity per orthopedics dc to [facility] when ready please call with neuro changes 02/04/18 09:34 02/05/18 06:44 Subjective: continued back pain, right hip feels worse today, some difficulty lifting right leg. Objective: Vital Signs Temp Pulse Resp BP Pulse Ox 37.5 C 102 H 16 127/72 H 92 02/04/18 23:38 02/04/18 23:38 02/04/18 23:38 02/04/18 23:38 02/04/18 23:38 Laboratory Results 02/05/18 04:41 02/01/18 10:00 02/04/18 02/05/18 02/06/18 06:59 05:59 05:59 Intake Total Output Total Balance AAOx4, +FC PERRL, EOMI, no facial drop 5/5 except right psoas/quad approx 3/5 from pain + light touch C/D/I ICD10 Worksheet Patient Problems: Problems Problem Status Onset Anterior dislocation of left hip Acute Primary osteoarthritis of left hip Acute
[2018-02-05 07:57] VITALS: BP 112/64
[2018-02-05] MEDS: CETIRIZINE 10 MG TAB PO SCH (08:20)
[2018-02-05] MEDS: METOPROLOL SUCCINATE XR 25 MG TAB PO SCH (08:20)
[2018-02-05] MEDS: FAMOTIDINE 20 MG TAB PO SCH (08:20)
[2018-02-05] MEDS: CHOLECALCIFEROL VIT D3 1,000 UNITS TAB PO SCH (08:20)
[2018-02-05] MEDS: DULoxetine 30 MG CAP PO SCH (08:20)
[2018-02-05] MEDS: ASCORBIC ACID 500 MG TAB PO SCH (08:20)
[2018-02-05] MEDS: guaiFENesin 600 MG TAB.ER PO SCH (08:21)
[2018-02-05] MEDS: GABAPENTIN 300 MG CAP PO SCH (08:21)
[2018-02-05] MEDS: SENNOSIDES/DOCUSATE SODIUM TAB PO SCH (08:23)
--- NOTE | 2018-02-05 11:45 | PDIAF ---
- Diagnosis Code Status: Full Code - Medication Management Discharge Medications: electronically signed and located in the Home Medication List. PIC Care - Routine: N/A - Orders Services needed: Physical Therapy, Occupational Therapy Diet Recommendation: no restrictions on diet Diet Texture: Regular Texture Diet Arias: No Activity/Weight Bearing Restrictions: LSO on brace when out of bed. 50% partial weight bearing on right leg Additional Instructions: No NSAIDS for 6 months after any fusion procedure. please discharge with lumbar fusion post op instructions follow up with Dr Monique in 2 weeks Follow up with Dr Miller in 2 weeks - Follow Up Care Current Providers and Referrals: Doctor Estrellita,On Staff, [Primary Care Provider] - Esau Monique MD [Medical Doctor] - Jodi Miller MD [Medical Doctor] -
--- NOTE | 2018-02-05 11:49 | ASMTLACE ---
LACE Length of stay for Answers: 4-6 days current admission Acuity / Level of Answers: Yes Care: Did the patient have an inpatient admission? Comorbidities - select Answers: Diabetes (uncontrolled or all that apply controlled) Opioid dependence / Chronic pain Other Notes: Hypothyroid # of Emergency department Answers: 0 visits in the last 6 months Social determinants Answers: Mental health diagnosis (anxiety, depression, pers onality disorders, etc.) Score: 16 Date Signed: 02/05/2018 11:48 AM Electronically Signed By:Marta Maciel LCSW
--- NOTE | 2018-02-05 11:53 | ASMTDCNOTE ---
Case Management Discharge Discharge Order Complete? Answers: Yes Patient to Obtain Answers: Other Notes: [facility] Medications Transportation Arranged Answers: [facility] (Date 02/05/2018 12:30 PM & Time) Faxed Final Orders Answers: Yes Notes: [facility] Family Notified Answers: Yes Notes: Patient notified todd jose Discharge Comments Notes: Patient has been discharged to [facility]. Date Signed: 02/05/2018 11:52 AM Electronically Signed By:Marta Maciel LCSW
--- NOTE | 2018-02-05 11:59 | ASDISCHSUM ---
Discharge Information Plan Status:SNF Medically Cleared to Leave:02/05/2018 Discharge Date:02/05/2018 CM D/C Disposition:[facility] ADT D/C Disposition:Other Rehab, Not [facility] Projected Discharge Date:02/05/2018 01:00 PM Transportation at D/C:Wheelchair Van Discharge Delay Reason: Follow-Up Date:02/05/2018 01:00 PM Discharge Slot:2 - 12:01 pm - 18:00 pm Final Diagnosis:Lumbar surgery Placement Information Referral Type:*Long-Term/SNF Referral ID:[facility]-[id number] Provider Name:[facility] Address 1:[address] Address 2: City:[place] Selection Factors: State:[place] Patient Contact Information Contact Name:NEREYDA Relationship: Address: City: [facility] Phone: State/Zip Code: Email: Financial Information Financial Class:Medicare Primary Plan Desc:MEDICARE INPATIENT Primary Plan Number:[id number] Secondary Plan Desc:[facility] Secondary Plan Number:[id number] Assessment Information LACE LACE Length of stay for Answers: 4-6 days current admission Acuity / Level of Answers: Yes Care: Did the patient have an inpatient admission? Comorbidities - select Answers: Diabetes (uncontrolled or all that apply controlled) Opioid dependence / Chronic pain Other Notes: Hypothyroid # of Emergency department Answers: 0 visits in the last 6 months Social determinants Answers: Mental health diagnosis (anxiety, depression, pers onality disorders, etc.) Score: 16 Date Signed: 02/05/2018 11:48 AM Electronically Signed By:Marta Maciel LCSW [facility] CM Progress Note CM Note CM Note Notes: Patient is POD #1 L2-5 laminectomy and TLIF and PSF. She is normally independent although she has been debilitated by pain for the last few months. She lives with her in [place] and is interested in SNF to help her with ADLs and PT. I sent a referral to [facility] at her request. Case Management will follow. Date Signed: 02/01/2018 11:56 AM Electronically Signed By:Josseline Buckner RN [facility] Progress Note CM Note CM Note Notes: Patient was scheduled to be discharged to [facility] today. However, she attempted to go to the bathroom by herself last night and fell. Patient had been instructed to use her call light and get assistance. Patient has broken her hip. Notified Ghazal with [facility] the patient will not be discharging today. Sent [facility] updates through [employer]. Discharge plan currently remains [facility] for rehab when medically clear for discharge. CM will follow. Date Signed: 02/03/2018 12:48 PM Electronically Signed By:Brittni Blanco LCSW Case Management Discharge Plan Note Case Management Discharge Discharge Order Complete? Answers: Yes Patient to Obtain Answers: Other Notes: [facility] Rehab Medications Transportation Arranged Answers: Other Notes: [facility] W/C van Transport will Pick (Date 02/05/2018 12:30 PM & Time) Faxed Final Orders Answers: Yes Notes: [facility] Family Notified Answers: Yes Notes: Patient notified todd jose Discharge Comments Notes: Patient has been discharged to [facility]. Date Signed: 02/05/2018 11:52 AM Electronically Signed By:Marta Maciel LCSW Intervention Information
--- NOTE | 2018-02-05 14:50 | CPEKG ---
Test Reason : OPEN Blood Pressure : / mmHG Vent. Rate : 080 BPM Atrial Rate : 080 BPM P-R Int : 145 ms QRS Dur : 084 ms QT Int : 404 ms P-R-T Axes : 076 -54 023 degrees QTc Int : 466 ms Sinus rhythm LAD, consider left anterior fascicular block Confirmed by Rubens Cortes ([id number]) on 02/05/2018 2:50:05 PM Referred By: Confirmed By:Rubens Cortes
--- NOTE | 2018-02-06 08:46 | POSTANESTH ---
Post Anesthetic Evaluation Cardiovascular Status: Normal, Stable Respiratory Status: Similar to Pre-op Cond., Tx Decrease in SpO2 Level of Consciousness/Mental Status: Can Participate in Eval Pain Control: Adequate, Prn Tx Ordered Nausea/Vomiting Control: Adequate, Prn Tx Ordered Complications Possibly Related to Anesthesia: None Noted
[2018-02-10] MEDS ORDERED: CYANO/VITAMIN B12 1000 MCG/ML VIAL IM SCH (13:15)
== END 2018-02-05 16:45 | DRG 454 ==
LOC: F3E 11:33 → F3N 14:42 → F2N 20:02 → F3N 02-03 16:38
PROVIDERS: ADMIT Neurological Surgery; ATTEND Neurological Surgery
PROC: 01NB0ZZ Release Lumbar Nerve, Open Approach (ICD-10-PCS; principal; 2018-01-31 13:00)
PROC: 0SG1071 Fusion of 2 or more Lumbar Vertebral Joints with Autologous Tissue Substitute, Posterior Approach, Posterior Column, Open Approach (ICD-10-PCS; principal; 2018-01-31 13:00)
PROC: 0SG10AJ Fusion of 2 or more Lumbar Vertebral Joints with Interbody Fusion Device, Posterior Approach, Anterior Column, Open Approach (ICD-10-PCS; principal; 2018-01-31 13:00)
PROC: 0QS604Z Reposition Right Upper Femur with Internal Fixation Device, Open Approach (ICD-10-PCS; 2018-02-03)
DX: M47.26 Other spondylosis with radiculopathy, lumbar region (principal); M41.56 Other secondary scoliosis, lumbar region; M48.02 Spinal stenosis, cervical region; S72.121A Displaced fracture of lesser trochanter of right femur, initial encounter for closed fracture; M97.01XA Periprosthetic fracture around internal prosthetic right hip joint, initial encounter; Y92.230 Patient room in hospital as the place of occurrence of the external cause; E03.9 Hypothyroidism, unspecified; Z98.1 Arthrodesis status; Z96.641 Presence of right artificial hip joint
CPT/HCPCS: 97116-GP; 97161-GP; 97164-GP; 97166-GO; 97168-GO; 97530-GP; 97535-GO; C1713; G8978-GP-CI; G8978-GP-CJ; G8978-GP-CK; G8979-GP-CI; G8979-GP-CJ; G8987-GO-CK; G8988-GO-CJ; J0171; J0690; J1100; J1170; J1650; J1885; J2001; J2250; J2270; J2274; J2370; J2405; J2704; J2795; J2800; J3010; J3360; J3420; P9041